=== PATIENT | male | born 1955 | race American Indian/Alaskan Native ===

== ENCOUNTER 2024-06-19 11:42 | Inpatient (IN) | payer OTHER, SELFPAY ==
[2024-06-19] VITALS (13 sets, daily range): BP systolic 108–132; BP diastolic 70–80; PULSE 72–84; RESP 18–93; TEMP 36.4–37; O2SAT 94–99; BMI 23.7; BMI 26.1; BMI 24.4
--- NOTE | 2024-06-19 11:51 | EDNOTE_ITS ---
ED General RME/HPI General Chief complaint: Abdominal Pain Stated complaint: ABD PAIN Time Seen by Provider: 06/19/24 11:50 Arrival date/time: 06/19/24 11:42 Abdominal pain HPI onset over the last week. The patient has a progressively more distended abdomen. The patient has a history of cirrhosis coming from assisted care facility states the pain is not manageable anymore. Patient denies any shortness of breath. EMS reports stable vital signs and route. Related Data Home Medications ?Medication ?Instructions ?Recorded ?Confirmed escitalopram oxalate 20 mg tablet 20 mg PO QDAY 06/19/24 furosemide 40 mg tablet (Lasix) 40 mg PO QAM 06/19/24 06/19/24 lactulose 10 gram/15 mL oral 20 g PO BID 06/19/2409/07 solution lorazepam 2 mg/mL oral concentrate 0.25 mg PO Q4H PRN anxiety 06/19/24 06/19/24 magnesium oxide 400 mg PO QDAY 06/19/2409/07 midodrine 10 mg tablet 10 mg PO BID 06/19/24 morphine 15 mg tablet,extended 15 mg PO Q12H 06/19/24 06/19/24 release morphine concentrate 20 mg/mL oral 20 mg PO .COMPLEX P RN pain (scale 06/19/24 06/19/24 syringe (FOR ORAL USE ONLY) score 7-10) rosuvastatin 5 mg tablet (Crestor) 5 mg PO QDAY 06/19/24 spironolactone 50 mg tablet 50 mg PO QDAY 06/19/2409/07 (Aldactone) Allergies Allergy/AdvReac Type Severity Reaction Status Date / Time No Known Allergies Allergy Verified 06/19/24 12:40 Review of Systems Review of Systems Narrative Review of Systems: GEN: No fever, no chills, no weight loss EYES: No discharge, no visual changes, no pain HEENT: No ear pain, no congestion, no sore throat PULM: No shortness of breath, no cough, no congestion CV: No chest pain, no dyspnea on exertion, no palpitations GI: No nausea, no vomiting, no diarrhea, + pain, no constipation : No frequency, no urgency, no dysuria MUSC/SKEL: No joint pain, no back pain SKIN: No rash PSYCH: No hallucinations, no depression HEME/LYMPH: No easy bleeding or bruising tendencies NEURO: No weakness, no headache ED Exam Narrative Physical exam: [General: Not in any acute distress Head normocephalic HEENT: Within acceptable limits Neck is supple nontender Chest equal chest rise nontender to palpation Respiratory: Clear to auscultation no wheezes crackles or rubs CV: Rate rhythm is regular no murmurs rubs or clicks Abdomen is distended, firm but not rigid, tympanic. Nontender Back: No CVA tenderness no spinous process tenderness from cervical spine thoracic and lumbar spine Skin: Intact no petechiae rash induration ulceration or crepitus Extremities: Moving all extremity against resistance cap refill less than 2 seconds neurosensory intact Neuro: Awake alert oriented x3 Glascow coma 15 no focal deficits] Course Quality Measures none Orders Category Date Time Status US abdomen Stat Exams 06/19/24 14:17 Completed Albumin, Peritoneal Fluid Routine Lab 06/19/24 15:15 Ordered Amylase,Peritoneal Fluid Routine Lab 06/19/24 15:15 Ordered Body Fld Cult w Julita & Gram St Routine Lab 06/19/24 15:15 Ordered CBC Stat Lab 06/19/24 12:05 Completed CMP [Comprehensive Metabolic Panel] Stat Lab 06/19/24 12:05 Completed Glucose,Peritoneal Fluid Routine Lab 06/19/24 15:15 Ordered LDH,Peritoneal Fluid Routine Lab 06/19/24 15:15 Ordered PT [Prothrombin Time with INR] Stat Lab 06/19/24 12:05 Completed PTT [Partial Thromboplastin Time] Stat Lab 06/19/24 12:05 Completed Peritoneal Cell Cnt/Diff Routine Lab 06/19/24 15:15 Ordered Protein Total,Peritoneal Fluid Routine Lab 06/19/24 15:15 Ordered oxyCODONE/APAP 5/325 [Percocet 5/325] Med 06/19/24 12:14 Discontinued 1 tab PO X1 ONE oxyCODONE/APAP 5/325 [Percocet 5/325] Med 06/19/24 13:47 Discontinued 1 tab PO X1 ONE Vital Signs Vital signs: Vital Signs Temperature 98.2 F 06/19/24 11:49 Pulse Rate 77 06/19/24 11:49 Respiratory Rate 19 06/19/24 11:49 Blood Pressure 113/73 06/19/24 11:49 Pulse Oximetry (%) 95 06/19/24 11:49 Oxygen Delivery Method Room Air 06/19/24 11:49 [facility] Patient data External records reviewed:: [facility] previous records and EMS form Clinical information provided by:: EMS Social determinants that could affect healthcare access:: none Patient has the following chronic illnesses:: Cirrhosis How is presenting disease/condition affected by chronic disease/condition?: e xacerbated by Evaluation data The following diagnostics were reviewed and interpreted by me:: lab results Lab and/or radiology exams considered but not ordered:: CBC shows no leukocytosis and H&H of 11.2 and 32.3 respectively with there is no old laboratory results for follow-through. Patient has a platelet count of 45,000. Coags show PT 15 INR 1.4 PTT of 29. CMP shows sodium 135 CO2 of 31.3 no other significant electrolyte imbalances renal impairment T. bili at 2.9 AST 105 ALT 60 alk phos is 230. Interpretation Summary: Patient is a DNR with a history of liver cancer, the patient has not had a paracentesis in decades.(According to patient), I am concerned that there is advancement of his liver cancer but not 100% sure. The patient is stable however at this time he has intractable abdominal pain. Patient's case discussed with Dr. Bari rojas, resident for Dr. Miller who agrees to accept the patient for admission. Patient is in agreement with this plan Medications Medications considered but not ordered:: None Medication administrations:: Medication Administration History Acetaminophen (Acetaminophen 325 Mg Tablet) 650 mg PO Q6H PRN PRN Reason: PAIN OR FEVER > 101 Stop: 07/19/24 15:32 Escitalopram Oxalate (Escitalopram Oxalate 10 Mg Tablet) 20 mg PO QDAY LIONEL Stop: 07/20/24 08:59 Furosemide (Furosemide 40 Mg Tablet) 40 mg PO QAM LIONEL Stop: 07/20/24 08:59 Ceftriaxone Sodium/Dextrose (Rocephin/D5w 1gm Iv Premix) 1 gm in 50 mls @ 100 mls/hr IV BID LIONEL Stop: 06/26/24 20:59 Last Admin: 06/19/24 21:28 Dose: 100 mls/hr Documented By: BRYAN Albumin Human (Albuminar-25 Ivpb) 12.5 gm in 50 mls @ 50 mls/hr IV X1 ONE Stop: 06/20/24 07:59 Lactulose (Lactulose Syrup 20 Gm/30 Ml Udc) 20 gm PO TID [facility]; Protocol Stop: 07/19/24 15:44 Last Admin: 06/19/24 21:28 Dose: 20 gm Documented By: Admin: 06/19/24 16:08 Dose: 20 gm Documented By: JOSEFINA Midodrine (Midodrine 5 Mg Tablet) 5 mg PO TID [facility] Stop: 07/19/24 21:59 Last Admin: 06/19/24 21:28 Dose: 5 mg Documented By: BRYAN Morphine Sulfate (Morphine Sulf 15 Mg Tabcr) 15 mg PO Q12HR [facility]; Protocol Stop: 06/24/24 20:59 Last Admin: 06/19/24 21:29 Dose: 15 mg Documented By: BRYAN Ondansetron HCl (Ondansetron Inj 2 Mg/Ml Inj 2 Ml) 4 mg IV Q6H PRN; Protocol PRN Reason: NAUSEA OR VOMITING Stop: 07/19/24 15:32 Pantoprazole Sodium (Pantoprazole Inj 40 Mg Vial) 40 mg IVP BID [facility] Stop: 07/19/24 20:59 Last Admin: 06/19/24 21:28 Dose: 40 mg Documented By: BRYAN Spironolactone (Spironolactone 25 Mg Tablet) 50 mg PO QDAY [facility] Stop: 07/20/24 08:59 Discontinued Medications Ceftriaxone Sodium/Dextrose (Rocephin/D5w 1gm Iv Premix) 50 mls @ 100 mls/hr IV QDAY [facility] Stop: 06/26/24 15:37 Oxycodone/Acetaminophen (Oxycodone/Apap 5/325 Tablet) 1 tab PO X1 ONE Stop: 06/19/24 12:15 Last Admin: 06/19/24 12:58 Dose: 1 tab Documented By: JOSEFINA Oxycodone/Acetaminophen (Oxycodone/Apap 5/325 Tablet) 1 tab PO X1 ONE Stop: 06/19/24 13:48 Last Admin: 06/19/24 15:29 Dose: 1 tab Documented By: JOSEFINA Pantoprazole Sodium (Pantoprazole Inj 40 Mg Vial) 40 mg IVP QDAY [facility] Stop: 07/19/24 15:44 Last Admin: 06/19/24 16:06 Dose: 40 mg Documented By: JOSEFINA Pantoprazole Sodium (Pantoprazole Inj 40 Mg Vial) 40 mg IVP X1 ONE Stop: 06/19/24 16:32 Last Admin: 06/19/24 16:36 Dose: Not Given Documented By: JOSEFINA Non-Admin Reason: Duplicate Medication on eMAR None Consultations Consultation(s) initiated? (list below): No Diagnosis Differential Diagnosis ED Complaint MDM: Intractable abdominal pain ascites liver dysfunction Most likely diagnosis given after review of the tests above:: Ascites abdominal pain Admission Indicated Admission indicated?: indicated Explain why admission is indicated or not indicated:: Requires thoracentesis in the a.m. with intractable abdominal pain Admission Request Was there a request for admission?: No Disposition Plan Disposition Plan: Admit Medical Decision Making Differential Diagnosis Differential Diagnosis: Intractable abdominal pain ascites liver dysfunction Lab Data 06/19/24 12:05 06/19/24 12:05 Labs: Lab Results 06/19/24 Range/Units 12:05 WBC 6.7 (3.8-10.6) Thou/mm3 RBC 3.34 L (4.50-5.90) Miln/mm3 Hgb 11.2 L (13.5-16.0) g/dL Hct 32.3 L (41.0-53.0) % MCV 97 (80-100) fL MCH 33.5 (25.0-35.0) pg MCHC 34.7 (31.0-37.0) g/dl RDW Std Deviation 48.5 H (35.1-43.9) fL Plt Count 45 L (140-440) Thou/mm3 Neut % (Auto) 83 H (37-80) % Lymph % (Auto) 6 L (10-50) % Rich % (Auto) 11 (0-12) % Eos % (Auto) 1 (0-10) % Baso % (Auto) 0 (0-2.5) % Neut # (Auto) 5.5 (1.8-7.7) Thou/mm3 Lymph # (Auto) 0.4 L (1.0-4.8) Thou/mm3 Rich # (Auto) 0.7 (0.0-0.8) Thou/mm3 Eos # (Auto) 0.0 (0.0-0.5) Thou/mm3 Baso # (Auto) 0.0 (0.0-0.2) Thou/mm3 Immature Gran # (Auto) 0.02 H (0.00-0.00) Thou/mm3 Absolute Nucleated RBC 0.00 (0.00-0.00) Thou/mm3 Immature Gran % 0 (0-0) % Nucleated RBC % 0 (0) /100 WBC PT 15.0 H (9.0-12.2) Seconds INR 1.4 H (0.9-1.3) APTT 29.0 (22.0-36.0) Seconds Sodium 135 L (136-145) mMol/L Potassium 4.6 (3.4-5.1) mMol/L Chloride 98 (98-107) mMol/L Carbon Dioxide 31.3 H (20.0-31.0) mMol/L Anion Gap 6 L (7-16) BUN 19 (9-23) mg/dL Creatinine 1.0 (0.6-1.3) mg/dL Estim Creat Clear Calc 79.9 (>60) mL/min eGFR > 60 (60 - ) See Note BUN/Creatinine Ratio 19 (12-20) Ratio Glucose 118 H (74-106) mg/dL Calculated Osmolality 273 L (275-295) Calcium 8.9 (8.3-10.6) mg/dL Corrected Calcium 9.6 (8.5-10.1) mg/dL Total Bilirubin 2.9 H (0.3-1.2) mg/dL AST 105 H (0-34) U/L ALT 60 H (10-49) U/L Alkaline Phosphatase 230 H (46-116) U/L Total Protein 6.5 (5.7-8.2) gm/dL Albumin 3.1 L (3.4-4.8) gm/dL Globulin 3.4 (2.3-3.5) gm/dL Albumin/Globulin Ratio 0.9 L (1.2-2.2) Tumor Marker AFP 23.20 H (<8.10) ng/mL Misc Test Result Platelets confirmed Discharge Plan Plan Patient Disposition: Other Care w/in Hosp ([facility]) Patient condition on transfer: Stable Problem List Clinical Impression: Intractable abdominal pain, Ascites
[2024-06-19 12:26] LABS: Basophils % (Auto) 0 % (0-2.5); Eosinophils % (Auto) 1 % (0-10); Hematocrit 32.3 % (41.0-53.0); Hemoglobin 11.2 g/dL (13.5-16.0); Immature Granulocytes % (Auto) 0 % (0-0); Immature Granulocytes Auto 0.02 Thou/mm3 (0.00-0.00); Lymphocytes # (Auto) 0.4 Thou/mm3 (1.0-4.8); Lymphocytes % (Auto) 6 % (10-50); Mean Corpuscular HGB Conc 34.7 g/dl (31.0-37.0); Mean Corpuscular Hemoglobin 33.5 pg (25.0-35.0); Mean Corpuscular Volume 97 fL (80-100); Monocytes # (Auto) 0.7 Thou/mm3 (0.0-0.8); Monocytes % (Auto) 11 % (0-12); Neutrophils # (Auto) 5.5 Thou/mm3 (1.8-7.7); Neutrophils % (Auto) 83 % (37-80); Nucleated Red Blood Cell % 0 /100 WBC (0); RDW Standard Deviation 48.5 fL (35.1-43.9); Red Blood Count 3.34 Miln/mm3 (4.50-5.90); White Blood Count 6.7 Thou/mm3 (3.8-10.6)
[2024-06-19 12:33] LABS: Platelet Count 45 Thou/mm3 (140-440)
--- NOTE | 2024-06-19 12:44 | PC.NURSE ---
pt brought in by ems due to abdominal pain
[2024-06-19 12:45] LABS: Alanine Aminotransferase 60 U/L (10-49); Albumin, Serum 3.1 gm/dL (3.4-4.8); Albumin/Globulin Ratio 0.9 (1.2-2.2); Alkaline Phosphatase 230 U/L (46-116); Anion Gap 6 (7-16); Aspartate Amino Transferase 105 U/L (0-34); BUN/Creatinine Ratio 19 Ratio (12-20); Bilirubin,Total 2.9 mg/dL (0.3-1.2); Blood Urea Nitrogen 19 mg/dL (9-23); Calcium 8.9 mg/dL (8.3-10.6); Calcium (Corrected) 9.6 mg/dL (8.5-10.1); Carbon Dioxide 31.3 mMol/L (20.0-31.0); Chloride 98 mMol/L (98-107); Estimated Creatinine Clearance 79.9 mL/min (>60); Globulin 3.4 gm/dL (2.3-3.5); Glucose 118 mg/dL (74-106); Osmolality,Calculated 273 (275-295); Potassium 4.6 mMol/L (3.4-5.1); Sodium 135 mMol/L (136-145); Total Protein 6.5 gm/dL (5.7-8.2); eGFR > 60 See Note
[2024-06-19 12:55] LABS: INR 1.4 (0.9-1.3)
[2024-06-19] MEDS: oxyCODONE/APAP 5/325 TABLET 1 TAB PO ×2 (12:58→15:29)
--- NOTE | 2024-06-19 13:35 | PC.NURSE ---
given 2 warm blankets and provider notified that pt still in pain
[2024-06-19 13:47] LABS: Slide Review Platelets confirmed
--- NOTE | 2024-06-19 14:17 | XR_ITS ---
Examination: Abdomen sonogram, complete Date and time of exam: June 19, 2024 1629 hours INDICATIONS: Severely distended abdomen noticed beginning one month ago. Technique: Multiple real-time grayscale transabdominal sonographic images of the abdomen have been obtained. Findings: 13 mm gallstone Gallbladder wall is thickened 0.5 cm, suspicious for edema however the patient has ascites Common bile duct 0.3 cm Pancreas obscured by bowel gas as well as aorta Liver 14.5 cm irregular contour fatty infiltration no focal liver lesions Normal hepatopedal portal venous flow Patent IVC Right kidney 10.7 cm cortex 1.5 cm Left kidney 11.1 cm renal cortex 1.8 cm Mild renal parenchymal scar formation, no hydronephrosis Marked splenomegaly 18.4 cm Moderate ascites throughout the abdomen IMPRESSION: Cirrhosis Prominent splenomegaly Moderate ascites Cholelithiasis, the gallbladder wall is thickened however the patient's ascites may contribute to this thickening of the gallbladder wall, HIDA scan follow-up would best assess for cystic duct obstruction
--- NOTE | 2024-06-19 15:52 | PC.NURSE ---
alfa from [facility] called to request update on pt.
[2024-06-19] MEDS: PANTOPRAZOLE INJ 40 MG VIAL IVP ×2 (16:06→21:28)
[2024-06-19] MEDS: LACTULOSE SYRUP 20 GM/30 ML UDC PO ×2 (16:08→21:28)
--- NOTE | 2024-06-19 16:28 | PC.NURSE ---
ultrasound in progress
--- NOTE | 2024-06-19 16:34 | PD.RESHP ---
Documentation for date of: 06/19/24 HPI History of Present Illness History of present illness: Patient is a 68-year-old male, , with past medical history of HCV, treated with Harvoni, end-stage cirrhosis, is on hospice, comes from [facility], complaining of abdominal distention and pain. Patient has been having abdominal distention for the past few months, but stated has been having excessive pain and tenderness for the past 1 week. Denied having fever, and syncope or diarrhea but does complain of painful defecation, bowel movement today contained bright red blood. Patient was last seen at the cancer treatment center for evaluation of liver masses, no follow-up recorded. Patient is from [facility]. Reported last paracentesis was many years ago. Currently on symptomatic treatment for ascites as well as pain relief with morphine lorazepam for agitation. Past medical history: End-stage cirrhosis, HCV treated with Harvoni, history of alcoholism. No pertinent surgical history Social history: Reported history of excessive drinking, but quit many months ago, history of smoking, but currently gets to smoke 3 cigarettes a day at the hospice center. CODE STATUS: Patient insists he wants to be full code, including chest compressions and intubation. He understands this will rescind the hospice and, hospice referral will have to be reinitiated. Review of Systems Review of Systems Narrative Review of Systems: General: Denies fevers or chills HEENT: Denies congestion or sore throat Heart: Denies chest pain or palpitations Lungs: Denies shortness of breath or cough Abdomen: Bright red bleeding per rectum, painful defecation, abdominal distention and tenderness. Genitourinary: Endorses dysuria Musculoskeletal: Denies joint pain, denies muscular pain Neurology: Denies any numbness, tingling Review of systems otherwise negative except what is mentioned above. Past Medical History Past Medical History CARDIAC: Positive Hypertension; Negative Hypercholesterolemia or Congestive Heart Failure RESPIRATORY: Negative Chronic Obstructive Pulmonary Disease (COPD) GENITOURINARY: Negative Renal Disease ENDOCRINE: Positive Diabetes Mellitus Type 2; Negative Diabetes Mellitus Type 1 Social History SMOKING STATUS: Current every day smoker Exam Vital Signs Temp Pulse Resp BP Pulse Ox O2 Del Method 98 F 75 19 117/72 94 L Room Air 06/19/24 16:19 06/19/24 16:19 06/19/24 16:19 06/19/24 16:19 06/19/24 16:19 06/19/24 16:19 Narrative Exam General: AOx3, cooperative, but frail, cachectic built. Skin: Intact, no cyanosis or edema noted. Multiple spider angiomatosis noted HEENT: Atraumatic/normocephalic, ALICIA, neck supple Heart: RRR, S1 and S2 without clicks or murmurs Lungs: Clear on auscultation bilaterally, no difficulty breathing Abdomen: Distended and tense, tender to even light palpation, protuberant abdomen. Vascular: Peripheral pulses palpable Neuro: No focal neurological deficits noted. Results: Labs 06/19/24 12:05 06/19/24 12:05 Labs: Short CBC 06/19/24 Range/Units 12:05 WBC 6.7 (3.8-10.6) Thou/mm3 Hgb 11.2 L (13.5-16.0) g/dL Hct 32.3 L (41.0-53.0) % Plt Count 45 L (140-440) Thou/mm3 BMP 06/19/24 12:05 Sodium 135 L Potassium 4.6 Chloride 98 Carbon Dioxide 31.3 H BUN 19 Creatinine 1.0 Glucose 118 H Calcium 8.9 Liver Function 06/19/24 Range/Units 12:05 Total Bilirubin 2.9 H (0.3-1.2) mg/dL AST 105 H (0-34) U/L ALT 60 H (10-49) U/L Alkaline Phosphatase 230 H (46-116) U/L Albumin 3.1 L (3.4-4.8) gm/dL Quality Measures Quality Measures none Advance care planning discussed with:: patient Medications Home Medications and Allergies Home Medications ?Medication ?Instructions ?Recorded ?Confirmed ?Type escitalopram oxalate 20 mg tablet 20 mg PO QDAY 06/19/24 06/19/24 History furosemide 40 mg tablet (Lasix) 40 mg PO QAM 06/19/24 06/19/24 History lactulose 10 gram/15 mL oral 20 g PO BID 06/19/24 06/19/24 History solution lorazepam 2 mg/mL oral concentrate 0.25 mg PO Q4H PRN anxiety 06/19/24 06/19/24 History magnesium oxide 400 mg PO QDAY 06/19/24 06/19/24 History midodrine 10 mg tablet 10 mg PO BID 06/19/24 06/19/24 History morphine 15 mg tablet,extended 15 mg PO Q12H 06/19/24 06/19/24 History release morphine concentrate 20 mg/mL oral 20 mg PO .COMPLEX PRN pain (scale 06/19/24 06/19/24 History syringe (FOR ORAL USE ONLY) score 7-10) rosuvastatin 5 mg tablet (Crestor) 5 mg PO QDAY 06/19/24 06/19/24 History spironolactone 50 mg tablet 50 mg PO QDAY 06/19/24 06/19/24 History (Aldactone) Allergies Allergy/AdvReac Type Severity Reaction Status Date / Time No Known Allergies Allergy Verified 06/19/24 12:40 Visit Medications Acetaminophen (Acetaminophen 325 Mg Tablet) 650 mg PO Q6H PRN PRN Reason: PAIN OR FEVER > 101 Stop: 07/19/24 15:32 Escitalopram Oxalate (Escitalopram Oxalate 10 Mg Tablet) 20 mg PO QDAY LIONEL Stop: 07/20/24 08:59 Furosemide (Furosemide 40 Mg Tablet) 40 mg PO QAM LIONEL Stop: 07/20/24 08:59 Ceftriaxone Sodium/Dextrose (Rocephin/D5w 1gm Iv Premix) 1 gm in 50 mls @ 100 mls/hr IV BID LIONEL Stop: 06/26/24 20:59 Albumin Human (Albuminar-25 Ivpb) 12.5 gm in 50 mls @ 50 mls/hr IV X1 ONE Stop: 06/20/24 07:59 Lactulose (Lactulose Syrup 20 Gm/30 Ml Udc) 20 gm PO TID LIONEL; Protocol Stop: 07/19/24 15:44 Last Admin: 06/19/24 16:08 Dose: 20 gm Midodrine (Midodrine 5 Mg Tablet) 5 mg PO TID ON LICENSE OF [facility] Stop: 07/19/24 21:59 Morphine Sulfate (Morphine Sulf 15 Mg Tabcr) 15 mg PO Q12HR LIONEL; Protocol Stop: 06/24/24 20:59 Ondansetron HCl (Ondansetron Inj 2 Mg/Ml Inj 2 Ml) 4 mg IV Q6H PRN; Protocol PRN Reason: NAUSEA OR VOMITING Stop: 07/19/24 15:32 Pantoprazole Sodium (Pantoprazole Inj 40 Mg Vial) 40 mg IVP BID LIONEL Stop: 07/19/24 20:59 Pantoprazole Sodium (Pantoprazole Inj 40 Mg Vial) 40 mg IVP X1 ONE Stop: 06/19/24 16:32 Spironolactone (Spironolactone 25 Mg Tablet) 50 mg PO QDAY ON LICENSE OF [facility] Stop: 07/20/24 08:59 Discontinued Medications Ceftriaxone Sodium/Dextrose (Rocephin/D5w 1gm Iv Premix) 50 mls @ 100 mls/hr IV QDAY ON LICENSE OF [facility] Stop: 06/26/24 15:37 Oxycodone/Acetaminophen (Oxycodone/Apap 5/325 Tablet) 1 tab PO X1 ONE Stop: 06/19/24 12:15 Last Admin: 06/19/24 12:58 Dose: 1 tab Oxycodone/Acetaminophen (Oxycodone/Apap 5/325 Tablet) 1 tab PO X1 ONE Stop: 06/19/24 13:48 Last Admin: 06/19/24 15:29 Dose: 1 tab Pantoprazole Sodium (Pantoprazole Inj 40 Mg Vial) 40 mg IVP QDAY ON LICENSE OF [facility] Stop: 07/19/24 15:44 Last Admin: 06/19/24 16:06 Dose: 40 mg Assessment & Plan Plan Patient is a 68-year-old male, past medical history of HCV, end-stage liver disease, possible liver mass, presents with protuberant abdomen, tenderness, plan for paracentesis, patient was on hospice, but wants to be full code for this hospitalization. Also complaining of bright red bleeding per rectum and painful defecation. #End-stage liver disease #Ascites #Rule out SBP #Transaminitis Ordered ultrasound abdominal stat, it will possibly be a limited study due to massive ascites, paracentesis for symptom relief as well as diagnostic studies, to rule out SBP, his abdomen is markedly tender even on light touch. Patient denied having a fever, but due to clinical presentation we will treat as SBP until diagnostic studies from paracentesis prove otherwise. Hyperbilirubinemia and transaminitis as well as coagulopathy consistent with end-stage cirrhosis. ? IV ceftriaxone 1 g twice daily ? IV Protonix 40 mg twice daily ? Lactulose 20 mg 3 times daily #Anemia #Bright red bleeding per rectum Complaining of bright red bleeding per rectum and patient has anemia on labs. Possibly hemorrhoids, given patient's overall prognosis and clinical condition, will hold off on getting a GI consult and aggressive intervention, will continue with Protonix IV twice daily at this point, will reassess patient after paracentesis, and goals of care tomorrow. ? IV Protonix 40 mg twice daily ? Daily CBC, trend hemoglobin, transfuse if hemoglobin less than 7. #Possible HCC Patient was seen in the cancer treatment center last year for evaluation of liver masses, possible HCC, blood in follow-up, patient follows at the [facility] system. Has been on hospice since past year, currently came to the ER due to unbearable abdominal pain. ? Ordered AFP ? Consider CT abdomen pelvis with contrast if ultrasound abdomen inconclusive. Plan of care discussed with my attending Dr. Angela Yu PGY2 Attending Provider Attestation/Addendum I have discussed and was present for the essential components of the history, physical examination, diagnosis, and treatment plan with the resident. I agree with the patient's care as documented by the resident and amended herein by me. Kristopher Miller, DO. Although this document has been carefully reviewed, there may still be some phonetic and other typographical errors. These errors are purely grammatical due to imperfections in the software program and should not be construed in any way to compromise the substance of the patient's medical care during this visit.
--- NOTE | 2024-06-19 16:37 | PC.NURSE ---
report given to evan for pt admin
[2024-06-19] MEDS: MIDODRINE 5 MG TABLET PO (21:28)
[2024-06-19] MEDS: cefTRIAXone/D5w 1gm IV premix 1 GM/50 ML BAG IV (21:28)
[2024-06-19] MEDS: Morphine Sulf 15 MG TABCR PO (21:29)
[2024-06-20] VITALS (8 sets, daily range): BP systolic 113–117; BP diastolic 69–76; PULSE 65–92; RESP 16–97; TEMP 36.2–36.7; O2SAT 91–95; BMI 24.5
[2024-06-20 05:05] LABS: Basophils % (Auto) 0 % (0-2.5); Eosinophils # (Auto) 0.1 Thou/mm3 (0.0-0.5); Eosinophils % (Auto) 1 % (0-10); Hematocrit 30.7 % (41.0-53.0); Hemoglobin 10.5 g/dL (13.5-16.0); Immature Granulocytes % (Auto) 0 % (0-0); Immature Granulocytes Auto 0.01 Thou/mm3 (0.00-0.00); Lymphocytes # (Auto) 0.4 Thou/mm3 (1.0-4.8); Lymphocytes % (Auto) 9 % (10-50); Mean Corpuscular HGB Conc 34.2 g/dl (31.0-37.0); Mean Corpuscular Hemoglobin 33.5 pg (25.0-35.0); Mean Corpuscular Volume 98 fL (80-100); Monocytes # (Auto) 0.5 Thou/mm3 (0.0-0.8); Monocytes % (Auto) 11 % (0-12); Neutrophils # (Auto) 3.9 Thou/mm3 (1.8-7.7); Neutrophils % (Auto) 79 % (37-80); Nucleated Red Blood Cell % 0 /100 WBC (0); RDW Standard Deviation 48.7 fL (35.1-43.9); Red Blood Count 3.13 Miln/mm3 (4.50-5.90); White Blood Count 4.9 Thou/mm3 (3.8-10.6)
[2024-06-20 05:19] LABS: Platelet Count 34 Thou/mm3 (140-440)
[2024-06-20 05:23] LABS: INR 1.5 (0.9-1.3); Prothrombin Time 15.6 Seconds (9.0-12.2)
[2024-06-20 05:39] LABS: Slide Review Platelets confirmed
[2024-06-20 05:43] LABS: Alanine Aminotransferase 51 U/L (10-49); Albumin, Serum 2.8 gm/dL (3.4-4.8); Alkaline Phosphatase 197 U/L (46-116); Anion Gap 4 (7-16); Aspartate Amino Transferase 88 U/L (0-34); BUN/Creatinine Ratio 19 Ratio (12-20); Bilirubin,Direct 1.6 mg/dL (0.0-0.3); Bilirubin,Total 2.8 mg/dL (0.3-1.2); Blood Urea Nitrogen 19 mg/dL (9-23); Calcium 8.7 mg/dL (8.3-10.6); Carbon Dioxide 30.2 mMol/L (20.0-31.0); Cardiac Risk Estimate 2.9 RATIO (4.0-6.7); Chloride 100 mMol/L (98-107); Cholesterol 72 mg/dL (132-200); Estimated Creatinine Clearance 79.9 mL/min (>60); Glucose 83 mg/dL (74-106); HDL Cholesterol 25 mg/dL (40-60); LDL Cholesterol,Calculated 37 mg/dL (0-130); Osmolality,Calculated 269 (275-295); Phosphorous 3.1 mg/dL (2.4-5.1); Potassium 4.2 mMol/L (3.4-5.1); Sodium 134 mMol/L (136-145); Thyroid Stimulating Hormone 5.46 uIU/mL (0.55-4.78); Total Protein 5.9 gm/dL (5.7-8.2); Triglycerides 51 mg/dL (30-150); eGFR > 60 See Note
[2024-06-20] MEDS: cefTRIAXone/D5w 1gm IV premix 1 GM/50 ML BAG IV (08:40)
[2024-06-20] MEDS: PANTOPRAZOLE INJ 40 MG VIAL IVP (08:40)
[2024-06-20] MEDS: ALBUMIN HUMAN 25% IVPB 12.5 GM/50 ML BTL IV (09:22)
--- NOTE | 2024-06-20 09:34 | PC.SS ---
Rounding: Pending Paracentesis
[2024-06-20 09:52] LABS: Free T4 (Free Thyroxine) 1.03 ng/dL (0.89-1.76)
--- NOTE | 2024-06-20 09:55 | PC.SS ---
Addendum entered by Cesilia Quarles 06/20/24 10:14: DC plan will be for the pt to return to [facility] with [facility]. Original Note: SS attempted to meet with pt at bedside to complete initial assessment. Pt was unable to identify where he lives and which hospice agency he is aligned with. SS inquired on his medical decision maker, he stated Mary from Hospice. SS inquired on her number but pt unable to provide. SS inquired if his son is his DM as he is listed on his facesheet, he stated no. Per H&P pt is from [facility], SS is unaware of this facility. SS reached out to [facility], he is not their pt. SS reached out to [facility] and spoke to Kimberly who stated that is their pt and he is from [facility]. [phone] spoke to Nurse Interiano, pt is from their facility and was aligned with [facility]. Parvez Interiano pt is pretty independent with his ADLs and utilizes a walker. SS inquired on his DM and she stated pt is his own RP.
--- NOTE | 2024-06-20 10:10 | CHAP ---
Patient was visited by the Spiritual Care Volunteer who prayed for them. (Volunteer was in the hospital from 09:00-10:10).
--- NOTE | 2024-06-20 10:27 | PC.NURSE ---
Per IR pt will not have procedure today d/t platelet level. For now planned for tomorrow.
--- NOTE | 2024-06-20 10:29 | PC.SS ---
Richie Edge is a 68-year-old male admitted to [facility] for Abd Pain. SS conducted bedside contact with the patient to complete initial assessment and to discuss discharge planning.? Patient was unable to confirm demographics. Therefore SS reached out to Nurse at [facility] at the [place] and spoke to Laisha who reports being independent with ADLs, and utilizes a walker. Pt aligned with [facility]. Laisha reports pt being his own DM and they have his son listed as secondary Gerry Sotomayor [phone]. Plan is for pt to return to [facility] are aligned with [facility] [place] [facility] for transport. No further intervention required at this time, rn social services would be available to address any further concerns. DC Plan: [facility] [phone] Contact: Son, Gerry Sotomayor [phone] PCP: Lit
--- NOTE | 2024-06-20 12:45 | PC.NURSE ---
Pt refusing care made MD barajas aware. Per Md will cont with hospice care.
--- NOTE | 2024-06-20 13:54 | ESDS_ITS ---
<Statement entered by Elissa Restrepo MD - 06/20/24 14:55> I personally saw and examined the patient and discussed the assessment and plan with the entire medicine team, including my attending Dr. Miller, Elissa Restrepo M.D. PGY-2 Disclaimer: Despite multiple revisions, due to the dictation software being used, the document bellow may not be free of grammatical errors including phonetic/typographic errors. However, this does not deter from our commitment to providing health care in the patient's best interest in mind. Planned Discharge Date 06/20/24 DS: Providers Provider Date of admission: 06/19/24 15:33 Primary care physician: Physician No Primary/Family Admitting Provider: John Yu MD Attending Provider on Admission: Adebayo Miller DO Consults: 06/19/24 17:41 Referral Registered Dietitian Routine Comment: Referral Speech Therapy Routine Comment: Health Equity Referral - Knowledge Deficit Routine Comment: Positive screening for knowledge deficit needs. Attending Provider on DC: Elvia Kemp MD Discharging Provider: Elvia Kemp MD DS: Diagnosis Problem List Completed Was Problem List Reviewed/Reconciled?: Yes Hospital Course Hospital Course Hospital course: Summary: Patient is a 68-year-old male, past medical history of HCV, end-stage liver disease, possible liver mass, presents with protuberant abdomen, tenderness, plan for paracentesis, patient was on hospice, but wants to be full code for this hospitalization. Additionally, complaining of blood per rectum. Given past medical history of end stage liver w/ decompensated ascites likely contributing to abdominal distention. Patient refused platel transfusion given thrombocytopenia and did not want to wait an additional day to have a paracenteisis done. Abdominal U/S showing cirrohosis, prominent splenomegaly, moderate ascites, and cholelithiasis. No Leukocytosis but patinet was started in patient w/ ceftriaxone 1 gram qday for prophylaxsis SBP. All home medicaiton continued in hospital. Patient denied any further intervention and will return to hospice w/ all home medication. Patient declined paracentesis. Instructions: -Patient is refusing paracentesis, insisting on going back to facility with Hospice. -Resume home medications per hospice . -In case of worsening symptoms , please return to the emergency room . #End-stage liver disease #Ascites #Rule out SBP #Transaminitis #Anemia #Bright red bleeding per rectum #Possible HCC - The patient's plan was discussed with attending Dr. Miller and senior residents Dr. Lauro Kemp MD PGY1 Internal Medicine Time Spent with Patient Time attestation: Total time spent providing and/or coordinating discharge services: at least 30 minutes of care and coordination Time spent: Greater than 30 minutes Exam Vital Signs Temp Pulse Resp BP Pulse Ox O2 Del Method O2 Flow Rate 98.1 F 81 18 113/69 92 L Room Air 1 06/20/24 12:00 06/20/24 12:00 06/20/24 12:06/20/24 12:06/20/24 12:06/20/24 12:06/20/24 01:07 Narrative Exam General Appearance: Alert & Oriented X3, well-nourished male who is lying in bed in mild discomfort secondary to abdominal distention HEENT: Skull symmetrical and atraumatic. Conjunctivae pin and moist. Pupils equal, round, reactive to light and accommodation (PERRL). External ear without lesion or discharge. Straight, nares patient, mucosa pink, no discharge. No thyroid nodule appreciated. No cervical lymphadenopathy. Cardio: Normal Rate and Rhythm with S1 and S2 heart sounds. No murmurs or extra heart sounds auscultated. No bruits on carotid auscultation. No peripheral edema or cyanosis. Lungs: Symmetric with good expansion. Chest and back non-tender. Breath sounds vesicular without crackles, wheezing or rhonchi Abdomen: mild diffuse tender, distended, Normal Reactive Bowel Sounds Neuro: Alert, cooperative, oriented to person, place, and time. Speech clear. CN grossly intact. Upper motor strength 5/5 and Lower motor strength 5/5. Sensation intact. Discharge Plan Plan Patient Disposition: Xfer Skilled Nsg Fac (SNF) Patient condition on transfer: Stable Care Plan Goals: Instructions: -Patient is refusing paracentesis, insisting on going back to facility with Hospice. -Resume home medications per hospice . -In case of worsening symptoms , please return to the emergency room . Prescriptions/Referrals Prescriptions/Med Rec: Continued lactulose 10 gram/15 mL solution 20 g PO BID lorazepam 2 mg/mL concentrate 0.25 mg PO Q4H PRN (Reason: anxiety) midodrine 10 mg tablet 10 mg PO BID Patient Comments: hold sbp >130 Rx Instructions: do not give last dose of day after 6PM or within 4 hrs of bedtime furosemide [Lasix] 40 mg tablet 40 mg PO QAM magnesium oxide 400 mg magnesium capsule 400 mg PO QDAY spironolactone [Aldactone] 50 mg tablet 50 mg PO QDAY rosuvastatin [Crestor] 5 mg tablet 5 mg PO QDAY escitalopram oxalate 20 mg tablet 20 mg PO QDAY morphine concentrate 20 mg/mL syringe 20 mg PO .COMPLEX PRN (Reason: pain (scale score 7-10)) Rx Instructions: 20 mg orally every 2 hours prn pain PRN; morphine 15 mg tablet extended release 15 mg PO Q12H Referrals: No Primary/Family,Physician [Primary Care Provider] - Patient/Caregiver Discharge Instructions Education Materials: Abdominal Pain, Taking Opioid Medicines Print Language: Kuwaiti Stand Alone Forms: Anne Marie Award Info., Patient Portal Info Letter Discharge Order Discharge Orders: Discharge (Routine); Ordered 06/20/24 Ordered By: John Yu Quality Discharge Quality Measures VTE prophylaxis Attestestation Attestation I have discussed and was present for the essential components of the discharge history, physical examination, diagnosis, and discharge treatment plan with the resident. I agree with the patient's discharge care as documented by the resident and amended herein by me. Kristopher Miller DO. The patient came to the hospital for abdominal pain and distention, the patient does have ascites fluid and we determined that a paracentesis would likely benefit the patient however due to his thrombocytopenia likely secondary to his end-stage liver disease, the procedure was not safe to perform per interventional radiology and our prism inspector. I did offer to transfuse the patient with platelets however he declined stating that if he could not be done today he wanted to go back to hospice care. Of note however, the patient did state he wanted to be full code, wanted full treatment and full workup in the emergency department when he arrived however wanted to stay in hospice care because he had nowhere else to go. The patient may return soon as I do believe a paracentesis would help him as stated above however we need to do it safely. Although this document has been carefully reviewed, there may still be some phonetic and other typographical errors. These errors are purely grammatical due to imperfections in the software program and should not be construed in any way to compromise the substance of the patient's medical care during this visit.
--- NOTE | 2024-06-20 17:30 | PC.NURSE ---
Report given to Laisha receiving ACCOUNT MANAGER EDUCATION at [facility] at [facility].
--- NOTE | 2024-06-20 19:32 | PC.NURSE ---
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 All belongings taken.
== END 2024-06-20 19:32 | disposition skilled nursing facility (03) | DRG 378 ==
LOC: SERX 14:36 → SERHOLD 16:25 → S3SX 17:06
PROVIDERS: Registered Nurse General Practice; Admitting Provider Student in an Organized Health Care Education/Training Program; Emergency Provider Family Medicine; Visit Provider Student in an Organized Health Care Education/Training Program
DX: K92.1 Melena (principal); D68.9 Coagulation defect, unspecified; R18.8 Other ascites; K74.60 Unspecified cirrhosis of liver; F17.210 Nicotine dependence, cigarettes, uncomplicated; K72.10 Chronic hepatic failure without coma; R16.0 Hepatomegaly, not elsewhere classified; D69.6 Thrombocytopenia, unspecified
CPT/HCPCS: 36415; 76700; 80048; 80053; 80061; 80076; 81001; 82042; 82105; 82150; 82945; 83615; 83735; 84100; 84157; 84439; 84443; 85025; 85610; 85730; 86850; 86900; 86901; 86965; 87081; 89051; 93225; J0696; J2470; P9047; A9270

== ENCOUNTER 2024-06-25 16:17 | Emergency (ER) | payer OTHER, SELFPAY ==
[2024-06-25 16:22] VITALS: BP 111/75; PULSE 88; RESP 16; TEMP 36.8; O2SAT 94
[2024-06-25 16:24] VITALS: BMI 23.7
[2024-06-25 16:43] VITALS: PULSE 96
--- NOTE | 2024-06-25 16:43 | EKG_ITS ---
[facility] Test Date: 2024-06-25 Pat Name: BRIANA FLORES Department: Room: - Gender: Male Cancer Program Coordinator: : 1955 Requested By: Jeanette Marino Order Number: [id number] Reading MD: Jeanette Marino Measurements Intervals [place] Rate: 83 P: 82 NM: 158 QRS: 13 QRSD: 93 T: 71 QT: 365 QTc: 431 Interpretive Statements SINUS RHYTHM LOW QRS VOLTAGE IN PRECORDIAL LEADS [QRS DEFLECTION < 1.0 mV IN CHEST LEADS] SEPTAL MYOCARDIAL INFARCTION , PROBABLY OLD [40+ ms Q WAVE IN V1/V2] No previous ECG available for comparison /store/S0/[id number]/ecg/[id number].pdf
[2024-06-25 16:44] VITALS: PULSE 82; RESP 16; O2SAT 96
[2024-06-25 17:15] LABS: Basophils % (Auto) 0 % (0-2.5); Eosinophils # (Auto) 0.1 Thou/mm3 (0.0-0.5); Eosinophils % (Auto) 1 % (0-10); Hemoglobin 11.2 g/dL (13.5-16.0); Immature Granulocytes % (Auto) 0 % (0-0); Lymphocytes % (Auto) 6 % (10-50); Monocytes # (Auto) 0.9 Thou/mm3 (0.0-0.8); Monocytes % (Auto) 12 % (0-12); Neutrophils % (Auto) 81 % (37-80); Nucleated Red Blood Cell % 0 /100 WBC (0)
[2024-06-25 17:16] LABS: Hematocrit 32.7 % (41.0-53.0); Immature Granulocytes Auto 0.03 Thou/mm3 (0.00-0.00); Lymphocytes # (Auto) 0.4 Thou/mm3 (1.0-4.8); Mean Corpuscular HGB Conc 34.3 g/dl (31.0-37.0); Mean Corpuscular Hemoglobin 32.7 pg (25.0-35.0); Mean Corpuscular Volume 96 fL (80-100); Neutrophils # (Auto) 6.1 Thou/mm3 (1.8-7.7); Platelet Count 52 Thou/mm3 (140-440); RDW Standard Deviation 49.1 fL (35.1-43.9); Red Blood Count 3.42 Miln/mm3 (4.50-5.90); White Blood Count 7.5 Thou/mm3 (3.8-10.6)
[2024-06-25 17:31] LABS: INR 1.4 (0.9-1.3); Partial Thromboplastin Time 30.5 Seconds (22.0-36.0); Prothrombin Time 15.1 Seconds (9.0-12.2)
[2024-06-25 17:32] LABS: B-Type Natriuretic Peptide < 20 pg/mL (0-100)
[2024-06-25 17:35] LABS: Alanine Aminotransferase 75 U/L (10-49); Albumin, Serum 3.1 gm/dL (3.4-4.8); Albumin/Globulin Ratio 0.9 (1.2-2.2); Alkaline Phosphatase 247 U/L (46-116); Anion Gap 5 (7-16); Aspartate Amino Transferase 122 U/L (0-34); BUN/Creatinine Ratio 22 Ratio (12-20); Bilirubin,Total 3.4 mg/dL (0.3-1.2); Blood Urea Nitrogen 24 mg/dL (9-23); Calcium (Corrected) 9.7 mg/dL (8.5-10.1); Carbon Dioxide 30.6 mMol/L (20.0-31.0); Chloride 97 mMol/L (98-107); Creatinine (Component) 1.1 mg/dL (0.6-1.3); Estimated Creatinine Clearance 72.6 mL/min (>60); Globulin 3.4 gm/dL (2.3-3.5); Glucose 136 mg/dL (74-106); Lipase 21 U/L (12-53); Magnesium 2.2 mg/dL (1.6-2.6); Osmolality,Calculated 272 (275-295); Potassium 4.6 mMol/L (3.4-5.1); Sodium 133 mMol/L (136-145); Total Protein 6.5 gm/dL (5.7-8.2); Troponin I 0.023 ng/mL (0.0-0.045); eGFR > 60 See Note
[2024-06-25 17:38] LABS: Path Review Blood Smear Sent to Pathologist; Slide Review Platelets confirmed
--- NOTE | 2024-06-25 17:59 | EDNOTE_ITS ---
ED Abdominal Pain RME/HPI General Chief Complaint: Abdominal Pain Stated complaint: ABDOMINAL DISTENSION Time seen by provider: 06/25/24 16:47 Arrival date/time: 06/25/24 16:17 RME / HPI RME / HPI narrative: 68 year old male with history of hepatitis C, treated with Harvoni, liver cirrhosis presents to the ED [facility] from [facility] at [facility] [place] for complaint of abdominal pain and distention today. Accompanied by constipation although re ports he is currently on Lactulose. No other associated symptoms reported. Denies fevers, chills, chest pain, cough, shortness of breath, nausea, vomiting, or urinary symptoms. Patient reportedly had a paracentesis performed for the first time last week and feels he may need another. Related Data Home Medications ?Medication ?Instructions ?Recorded ?Confirmed escitalopram oxalate 20 mg tablet 20 mg PO QDAY 06/19/24 furosemide 40 mg tablet (Lasix) 40 mg PO QAM 06/19/24 06/19/24 lactulose 10 gram/15 mL oral 20 g PO BID 06/19/2409/07 solution lorazepam 2 mg/mL oral concentrate 0.25 mg PO Q4H PRN anxiety 06/19/24 06/19/24 magnesium oxide 400 mg PO QDAY 06/19/2409/07 midodrine 10 mg tablet 10 mg PO BID 06/19/24 morphine 15 mg tablet,extended 15 mg PO Q12H 06/19/24 06/19/24 release morphine concentrate 20 mg/mL oral 20 mg PO .COMPLEX P RN pain (scale 06/19/24 06/19/24 syringe (FOR ORAL USE ONLY) score 7-10) rosuvastatin 5 mg tablet (Crestor) 5 mg PO QDAY 06/19/24 spironolactone 50 mg tablet 50 mg PO QDAY 06/19/2409/07 (Aldactone) Allergies Allergy/AdvReac Type Severity Reaction Status Date / Time No Known Allergies Allergy Verified 06/25/24 16:44 Review of Systems Review of Systems Narrative Review of Systems: GEN: No fever, no chills EYES: No discharge, no visual changes, no pain HEENT: No ear pain, no congestion, no sore throat PULM: No shortness of breath, no cough, no congestion CV: No chest pain, no palpitations GI: No nausea, no vomiting, no diarrhea, +pain, +distention, no constipation : No frequency, no urgency, no dysuria MUSC/SKEL: No joint pain, no back pain SKIN: No rash NEURO: No weakness, no headache Past Medical History Past Medical History CARDIAC: Positive Hypertension GASTROINTESTINAL: Positive Cirrhosis MUSCULOSKELETAL: Positive Arthritis ENDOCRINE: Positive Diabetes Mellitus Type 1 PSYCHO/SOCIAL: Positive Recreational Drug Use OTHER HISTORY: Positive Falls, Chicken Pox and Cancer Social History SMOKING STATUS: Never smoker ED Exam Narrative Physical exam: GENERAL APPEARANCE: alert and oriented x 4, well-developed, well-nourished, no acute distress; jaundice HEENT: Normocephalic, atraumatic; pupils equal, round, reactive to light; scleral icterus; EOMI; mucous membranes pink, moist; oropharynx clear NECK: Supple LUNGS: CTABL; no wheezes, no rales, no rhonchi HEART: Regular rate, regular rhythm; normal S1, S2; no murmurs ABDOMEN: distended, moderately firm, mild diffuse tenderness, ecchymosis to the abdominal wall; normal BS; no guarding, no rebound; no masses, no organomegaly, no hernia BACK: no CVA tenderness EXTREMITIES: atraumatic; no edema NEUROLOGIC: awake; alert and oriented x4; cranial nerves II-XII grossly intact; no focal sensory or motor deficits PSYCHIATRIC: appropriate mood and affect SKIN: warm, dry, jaundice; no rashes Course Quality Measures none Orders Category Date Time Status Manager Ed NOW Care 06/25/24 16:43 Active EKG (ED ONLY) *Do not use* NOW Care 06/25/24 16:43 Completed EKG (ED Only) Stat Exams 06/25/24 16:43 Draft US paracentesis abd w/image Stat Exams 06/25/24 17:17 Ordered Albumin, Peritoneal Fluid Routine Lab 06/25/24 17:18 Ordered Amylase,Peritoneal Fluid Routine Lab 06/25/24 17:18 Ordered B-Type Natriuretic Peptide Stat Lab 06/25/24 17:07 Completed Body Fld Cult w Julita & Gram St Routine Lab 06/25/24 17:18 Ordered CBC Stat Lab 06/25/24 17:07 Completed Comprehensive Metabolic Panel Stat Lab 06/25/24 17:07 Completed Glucose,Peritoneal Fluid Routine Lab 06/25/24 17:18 Ordered LDH,Peritoneal Fluid Routine Lab 06/25/24 17:18 Ordered Lipase Stat Lab 06/25/24 17:07 Completed Magnesium Stat Lab 06/25/24 17:07 Completed Partial Thromboplastin Time Stat Lab 06/25/24 17:07 Completed Path Review Blood Smear Stat Lab 06/25/24 17:07 Completed Peritoneal Cell Cnt/Diff Routine Lab 06/25/24 17:18 Ordered Protein Total,Peritoneal Fluid Routine Lab 06/25/24 17:18 Ordered Prothrombin Time with INR Stat Lab 06/25/24 17:07 Completed Troponin I Stat Lab 06/25/24 17:07 Completed Morphine Inj Med 06/25/24 18:12 Discontinued 5 mg IM X1 ONE Morphine Inj Med 06/25/24 17:18 Discontinued 5 mg IVP X1 ONE Ondansetron Inj [Zofran Inj] Med 06/25/24 18:12 Discontinued 4 mg IM X1 ONE Ondansetron Inj [Zofran Inj] Med 06/25/24 17:18 Discontinued 4 mg IV X1 ONE Vital Signs Vital signs: Vital Signs Temperature 98.2 F 06/25/24 16:22 Pulse Rate 88 06/25/24 16:22 Respiratory Rate 16 06/25/24 16:22 Blood Pressure 111/75 06/25/24 16:22 Pulse Oximetry (%) 94 L 06/25/24 16:22 Oxygen Delivery Method Room Air 06/25/24 16:22 Pulse ox is 94% on room air which is adequate. Abdominal Pain MDM MDM Narrative MDM Narrative:: IAnn am scribing for and in the presence of Dr. Emery. Patient data External records reviewed:: [facility] previous records (I reviewed admission from 06/19/2024 through 06/20/2024), EMS form and Shelter records Clinical information provided by:: patient and EMS Social determinants that could affect healthcare access:: housing (SNF resident ) Patient has the following chronic illnesses:: hepatitis C, treated with Harvoni, liver cirrhosis How is presenting disease/condition affected by chronic disease/condition?: exacerbated by Evaluation data The following diagnostics were reviewed and interpreted by me:: lab results and EKG tracing(s) (Sinus rhythm, rate 83, no acute ischemic changes ) Lab and/or radiology exams considered but not ordered:: None Interpretation Summary: As noted above Medications / Prescriptions Medications or Prescriptions considered but not ordered:: None Medication administrations:: Medication Administration History Discontinued Medications Morphine Sulfate (Morphine Sulf Inj 10 Mg/Ml Vial) 5 mg IVP X1 ONE Stop: 06/25/24 17:19 Morphine Sulfate (Morphine Sulf Inj 10 Mg/Ml Vial) 5 mg IM X1 ONE Stop: 06/25/24 18:13 Ondansetron HCl (Ondansetron Inj 2 Mg/Ml Inj 2 Ml) 4 mg IV X1 ONE Stop: 06/25/24 17:19 Ondansetron HCl (Ondansetron Inj 2 Mg/Ml Inj 2 Ml) 4 mg IM X1 ONE; Protocol Stop: 06/25/24 18:13 See above Consultations Consultation(s) initiated? (list below): No Diagnosis Differential diagnosis abdominal pain: abdominal pain, constipation and other (Ascites ) Most likely diagnosis given after review of the tests above:: Abdominal pain Abdominal ascites Admission Indicated Admission indicated?: not indicated Admission Request Was there a request for admission?: Yes Admission Attestation Admission request attestation: Discussed case with [] from Hospitalist service regarding admission. Discussed patients ED course, exam findings, labs, and radiology results. The Hospitalist [agrees,declines] to accept the patient for admission. Disposition Plan Disposition Plan: Discharge Discharge Attestation Discharge Attestation: The patient and all family members were given an opportunity to ask questions and understood the discharge instructions. Discharge instructions specifically effects, indications for sooner follow up or return to the emergency department, and the expected course of current diagnosis. Patient condition: Stable Discharge Plan Plan Patient Disposition: HOME (Self Care) Prescriptions/Referrals Prescriptions/Med Rec: No Action lactulose 10 gram/15 mL solution 20 g PO BID lorazepam 2 mg/mL concentrate 0.25 mg PO Q4H PRN (Reason: anxiety) midodrine 10 mg tablet 10 mg PO BID Patient Comments: hold sbp >130 Rx Instructions: do not give last dose of day after 6PM or within 4 hrs of bedtime furosemide [Lasix] 40 mg tablet 40 mg PO QAM magnesium oxide 400 mg magnesium capsule 400 mg PO QDAY spironolactone [Aldactone] 50 mg tablet 50 mg PO QDAY rosuvastatin [Crestor] 5 mg tablet 5 mg PO QDAY escitalopram oxalate 20 mg tablet 20 mg PO QDAY morphine concentrate 20 mg/mL syringe 20 mg PO .COMPLEX PRN (Reason: pain (scale score 7-10)) Rx Instructions: 20 mg orally every 2 hours prn pain PRN; morphine 15 mg tablet extended release 15 mg PO Q12H Referrals: No Primary/Family,Physician [Primary Care Provider] - In 1 week Problem List Clinical Impression: Abdominal pain, Abdominal ascites Patient/Caregiver Discharge Instructions Education Materials: ED Ascites Print Language: Malian Stand Alone Forms: Anne Marie Award Info., Patient Portal Info Letter
[2024-06-25 18:27] VITALS: BP 127/74; PULSE 79; RESP 19; TEMP 36.8; O2SAT 96
[2024-06-25] MEDS: MORPHINE SULF INJ 10 MG/ML VIAL 5 MG IM (18:35)
[2024-06-25] MEDS: ONDANSETRON INJ 2 MG/ML INJ 2 ML 4 MG IM (18:35)
[2024-06-25 20:00] VITALS: BP 118/67; PULSE 78; RESP 19; TEMP 36.7; O2SAT 98
== END 2024-06-25 21:03 | disposition home or self-care (01) ==
PROVIDERS: Emergency Provider Emergency Medicine
DX: K74.60 Unspecified cirrhosis of liver (principal); R18.8 Other ascites; K59.00 Constipation, unspecified
CPT/HCPCS: 36415; 80053; 82042; 82150; 82945; 83615; 83690; 83735; 83880; 84157; 84484; 85025; 85610; 85730; 89051; 93005; 96372; 99284; J2270; J2405

== ENCOUNTER 2024-06-28 10:13 | Emergency (ER) | payer OTHER, SELFPAY ==
[2024-06-28 10:14] VITALS: PULSE 92; O2SAT 93
[2024-06-28 10:31] VITALS: BP 116/78; PULSE 88; TEMP 36.9; O2SAT 98
--- NOTE | 2024-06-28 10:51 | XR_ITS ---
Examination: Ultrasound-guided paracentesis Abdominal sonogram limited Date and time of exam: June 28, 2024 1224 hours INDICATIONS: Cirrhosis, increasing ascites and abdominal distention this week Informed consent provided. A timeout was completed verifying correct patient, procedure, site, positioning, and special adequate movement if applicable. Technique: Multiple sonographic images of the abdomen have been obtained. Appropriate area for paracentesis was marked. Local anesthesia is obtained with 1% lidocaine. Yueh catheter is successfully introduced. Findings: Abdominal sonographic images demonstrate sufficient ascitic fluid for paracentesis. After placing the Yueh catheter, 8600 cc of fluid were successfully removed. During and after completion of the procedure the patient appear in satisfactory and stable condition with no complications observed. Estimated blood loss 0 cc Impression: Abdominal ascites Successful ultrasound-guided paracentesis as described above
--- NOTE | 2024-06-28 10:51 | PD.EDRME ---
Rapid Medical Screening Exam [facility] Arrival date/time: 06/28/24 10:13 68-year-old male with a history of cirrhosis presents to the emergency room with a chief complaint of abdominal distention and shortness of breath x 3 weeks. Patient states his distention has progressively gotten worse. Patient states he has cirrhosis but has not got tapped in years. I have greeted and performed a focused initial assessment of this patient. A comprehensive ED assessment and evaluation of the patient, analysis of all test results, and completion of the medical decision making process will be conducted by additional ED providers. Chief Complaint: Abdominal Pain Vital signs: Vital Signs Temperature 98.4 F 06/28/24 10:31 Pulse Rate 88 06/28/24 10:31 Blood Pressure 116/78 06/28/24 10:31 Pulse Oximetry (%) 98 06/28/24 10:31 Oxygen Delivery Method Room Air 06/28/24 10:31 Vital signs reviewed by provider: Yes
[2024-06-28 11:13] LABS: Basophils % (Auto) 0 % (0-2.5); Eosinophils % (Auto) 0 % (0-10); Hematocrit 36.7 % (41.0-53.0); Hemoglobin 12.6 g/dL (13.5-16.0); Immature Granulocytes % (Auto) 0 % (0-0); Immature Granulocytes Auto 0.02 Thou/mm3 (0.00-0.00); Lymphocytes # (Auto) 0.4 Thou/mm3 (1.0-4.8); Lymphocytes % (Auto) 4 % (10-50); Mean Corpuscular HGB Conc 34.3 g/dl (31.0-37.0); Mean Corpuscular Hemoglobin 32.4 pg (25.0-35.0); Mean Corpuscular Volume 94 fL (80-100); Monocytes % (Auto) 10 % (0-12); Neutrophils # (Auto) 8.7 Thou/mm3 (1.8-7.7); Neutrophils % (Auto) 85 % (37-80); Nucleated Red Blood Cell % 0 /100 WBC (0); RDW Standard Deviation 49.8 fL (35.1-43.9); Red Blood Count 3.89 Miln/mm3 (4.50-5.90); White Blood Count 10.2 Thou/mm3 (3.8-10.6)
[2024-06-28 11:26] LABS: Alanine Aminotransferase 91 U/L (10-49); Albumin, Serum 3.5 gm/dL (3.4-4.8); Albumin/Globulin Ratio 0.9 (1.2-2.2); Alkaline Phosphatase 307 U/L (46-116); Anion Gap 3 (7-16); Aspartate Amino Transferase 149 U/L (0-34); BUN/Creatinine Ratio 22 Ratio (12-20); Bilirubin,Total 4.1 mg/dL (0.3-1.2); Blood Urea Nitrogen 28 mg/dL (9-23); Calcium 9.4 mg/dL (8.3-10.6); Calcium (Corrected) 9.8 mg/dL (8.5-10.1); Carbon Dioxide 31.6 mMol/L (20.0-31.0); Chloride 97 mMol/L (98-107); Creatinine (Component) 1.3 mg/dL (0.6-1.3); Globulin 3.7 gm/dL (2.3-3.5); Glucose 140 mg/dL (74-106); Osmolality,Calculated 272 (275-295); Potassium 5.4 mMol/L (3.4-5.1); Sodium 132 mMol/L (136-145); Total Protein 7.2 gm/dL (5.7-8.2); eGFR 60 See Note
[2024-06-28 11:33] LABS: INR 1.4 (0.9-1.3); Partial Thromboplastin Time 29.6 Seconds (22.0-36.0)
--- NOTE | 2024-06-28 11:57 | PC.NURSE ---
CALL RECEIVED FROM NURSE AT [facility] AT [facility] FOR UPDATE AND INFORMED THAT MD WAITING ON LABS AND U/S
[2024-06-28 12:04] LABS: Platelet Count 60 Thou/mm3 (140-440)
[2024-06-28 14:14] LABS: Slide Review Platelets confirmed
--- NOTE | 2024-06-28 14:37 | PD.EDADULT ---
ED General RME/HPI General Chief complaint: Abdominal Pain Stated complaint: ABD PAIN D/T SEVERE ASCITES Time Seen by Provider: 06/28/24 14:34 Arrival date/time: 06/28/24 10:13 CC: Abdominal distention with shortness of breath HPI ongoing for 3 weeks. The patient has ascites. But has not had paracentesis in a number of years. Patient is awake alert oriented nontoxic-appearing not in any acute distress denies any chest pain. RME / HPI RME / HPI narrative: 06/28/24 10:13 68-year-old male with a history of cirrhosis presents to the emergency room with a chief complaint of abdominal distention and shortness of breath x 3 weeks. Patient states his distention has progressively gotten worse. Patient states he has cirrhosis but has not got tapped in years. I have greeted and performed a focused initial assessment of this patient. A comprehensive ED assessment and evaluation of the patient, analysis of all test results, and completion of the medical decision making process will be conducted by additional ED providers. Related Data Home Medications ?Medication ?Instructions ?Recorded ?Confirmed escitalopram oxalate 20 mg tablet 20 mg PO QDAY 06/19/24 06/19/24 furosemide 40 mg tablet (Lasix) 40 mg PO QAM 06/19/24 06/19/24 lactulose 10 gram/15 mL oral 20 g PO BID 06/19/24 06/19/24 solution lorazepam 2 mg/mL oral concentrate 0.25 mg PO Q4H PRN anxiety 06/19/24 06/19/24 magnesium oxide 400 mg PO QDAY 06/19/24 06/19/24 midodrine 10 mg tablet 10 mg PO BID 06/19/24 06/19/24 morphine 15 mg tablet,extended 15 mg PO Q12H 06/19/24 06/19/24 release morphine concentrate 20 mg/mL oral 20 mg PO .COMPLEX PRN pain (scale 06/19/24 06/19/24 syringe (FOR ORAL USE ONLY) score 7-10) rosuvastatin 5 mg tablet (Crestor) 5 mg PO QDAY 06/19/24 06/19/24 spironolactone 50 mg tablet 50 mg PO QDAY 06/19/24 06/19/24 (Aldactone) Allergies Allergy/AdvReac Type Severity Reaction Status Date / Time No Known Allergies Allergy Verified 06/28/24 10:18 Review of Systems Review of Systems Narrative Review of Systems: GEN: No fever, no chills, no weight loss EYES: No discharge, no visual changes, no pain HEENT: No ear pain, no congestion, no sore throat PULM: + shortness of breath, no cough, no congestion CV: No chest pain, no dyspnea on exertion, no palpitations GI: No nausea, no vomiting, no diarrhea, + pain, no constipation : No frequency, no urgency, no dysuria MUSC/SKEL: No joint pain, no back pain SKIN: No rash PSYCH: No hallucinations, no depression HEME/LYMPH: No easy bleeding or bruising tendencies NEURO: No weakness, no headache Past Medical History Past Medical History NEUROLOGIC: Negative Seizures CARDIAC: Positive Hypertension; Negative Cardiac Disorders, Hypercholesterolemia or Congestive Heart Failure RESPIRATORY: Negative Chronic Obstructive Pulmonary Disease (COPD) or Asthma GASTROINTESTINAL: Positive Cirrhosis; Negative Hepatitis GENITOURINARY: Negative Renal Disease MUSCULOSKELETAL: Positive Arthritis ENDOCRINE: Positive Diabetes Mellitus Type 1; Negative Diabetes Mellitus Type 2 HEMATOLOGIC: Negative Sickle Cell Disease PSYCHO/SOCIAL: Positive Recreational Drug Use OTHER HISTORY: Positive Falls, Chicken Pox and Cancer; Negative Anesthesia Reactions, Chemotherapy or Radiation Therapy Social History SMOKING STATUS: Current every day smoker ED Exam Narrative Physical exam: [General: In mild discomfort but not in any acute distress Head normocephalic HEENT: Within acceptable limits Neck is supple nontender Chest equal chest rise nontender to palpation Respiratory: Clear to auscultation no wheezes crackles or rubs CV: Rate rhythm is regular no murmurs rubs or clicks Abdomen is distended firm but not rigid, tympanic. Nontender. Back: No CVA tenderness no spinous process tenderness from cervical spine thoracic and lumbar spine Skin: Intact no petechiae rash induration ulceration or crepitus Extremities: Moving all extremity against resistance cap refill less than 2 seconds neurosensory intact Neuro: Awake alert oriented x3 Glascow coma 15 no focal deficits] Course Quality Measures none Orders Category Date Time Status US paracentesis abd w/image Stat Exams 06/28/24 10:51 Completed CBC Stat Lab 06/28/24 10:58 Completed CMP [Comprehensive Metabolic Panel] Stat Lab 06/28/24 10:58 Completed PT [Prothrombin Time with INR] Stat Lab 06/28/24 10:58 Completed PTT [Partial Thromboplastin Time] Stat Lab 06/28/24 10:58 Completed Albumin Human 25% Ivpb [Albuminar-25 Ivpb] Med 06/28/24 14:38 Discontinued 12.5 gm in 50 ml IV X1 Calcium Gluconate 10% Inj Med 06/28/24 14:48 Discontinued 1 gm IV X1 ONE Lidocaine 1% Pf 30 ml [Xylocaine 1% Pf 30 ml] Med 06/28/24 12:09 Discontinued 30 ml .ROUTE .STK-MED ONE oxyCODONE/APAP 5/325 [Percocet 5/325] Med 06/28/24 15:11 Discontinued 1 tab PO X1 ONE Vital Signs Vital signs: Vital Signs Temperature 98.4 F 06/28/24 10:31 Pulse Rate 88 06/28/24 10:31 Blood Pressure 116/78 06/28/24 10:31 Pulse Oximetry (%) 98 06/28/24 10:31 Oxygen Delivery Method Room Air 06/28/24 10:31 [facility] Patient data External records reviewed:: [facility] previous records Clinical information provided by:: patient Social determinants that could affect healthcare access:: none Patient has the following chronic illnesses:: Cirrhosis history of ascites How is presenting disease/condition affected by chronic disease/condition?: exacerbated by Evaluation data The following diagnostics were reviewed and interpreted by me:: lab results, radiology exam(s) and EKG tracing(s) Lab and/or radiology exams considered but not ordered:: CBC shows no leukocytosis H&H of 12.6 and 37.7 respectively platelet count at 60. PT 15.0 INR 1.4 PTT 29.6 CMP shows a sodium 132 potassium of 5.4 chloride of 97 carbon oxide 31.6 gap of 3 BUN of 28 creatinine 1.3. Glucose of 140 T. bili of 4.1 transaminitis. Paracentesis ultrasound shows 8600 mL of fluid removed. Patient states abdominal pain is gone and breathing is now normal . Interpretation Summary: Ascites. Transaminitis probably secondary to cirrhosis. Medications Medications considered but not ordered:: None Medication administrations:: Medication Administration History Discontinued Medications Calcium Gluconate (Calcium Gluconate 10% Inj 1 Gm/10 Ml Vial) 1 gm IV X1 ONE Stop: 06/28/24 14:49 Last Admin: 06/28/24 16:11 Dose: 1 gm Documented By: GM Albumin Human (Albuminar-25 Ivpb) 12.5 gm in 50 mls @ 50 mls/hr IV X1 ONE Stop: 06/28/24 15:37 Last Admin: 06/28/24 16:12 Dose: 50 mls/hr Documented By: GM Lidocaine HCl (Lidocaine Inj Pf 1% 30 Ml Vial) Confirm Administered Dose 30 ml .ROUTE .STK-MED ONE Stop: 06/28/24 12:10 Last Admin: 06/28/24 12:38 Dose: Not Given Documented By: KAYLEE Non-Admin Reason: Cancelled by Provider Oxycodone/Acetaminophen (Oxycodone/Apap 5/325 Tablet) 1 tab PO X1 ONE Stop: 06/28/24 15:12 Last Admin: 06/28/24 15:44 Dose: 1 tab Documented By: GUANACO None Consultations Consultation(s) initiated? (list below): No Diagnosis Differential Diagnosis ED Complaint MDM: Cirrhosis ascites Most likely diagnosis given after review of the tests above:: Abdominal ascites Admission Indicated Admission indicated?: not indicated Explain why admission is indicated or not indicated:: Stable for outpatient follow-up Admission Request Was there a request for admission?: No Disposition Plan Disposition Plan: Discharge Discharge Attestation Discharge Attestation: The patient and all family members were given an opportunity to ask questions and understood the discharge instructions. Discharge instructions specifically effects, indications for sooner follow up or return to the emergency department, and the expected course of current diagnosis. Patient condition: Stable Medical Decision Making Differential Diagnosis Differential Diagnosis: Cirrhosis ascites Lab Data 06/28/24 10:58 06/28/24 10:58 Labs: Lab Results 06/28/24 Range/Units 10:58 WBC 10.2 (3.8-10.6) Thou/mm3 RBC 3.89 L (4.50-5.90) Miln/mm3 Hgb 12.6 L (13.5-16.0) g/dL Hct 36.7 L (41.0-53.0) % MCV 94 (80-100) fL MCH 32.4 (25.0-35.0) pg MCHC 34.3 (31.0-37.0) g/dl RDW Std Deviation 49.8 H (35.1-43.9) fL Plt Count 60 L (140-440) Thou/mm3 Neut % (Auto) 85 H (37-80) % Lymph % (Auto) 4 L (10-50) % [place] % (Auto) 10 (0-12) % Eos % (Auto) 0 (0-10) % Baso % (Auto) 0 (0-2.5) % Neut # (Auto) 8.7 H (1.8-7.7) Thou/mm3 Lymph # (Auto) 0.4 L (1.0-4.8) Thou/mm3 [place] # (Auto) 1.0 H (0.0-0.8) Thou/mm3 Eos # (Auto) 0.0 (0.0-0.5) Thou/mm3 Baso # (Auto) 0.0 (0.0-0.2) Thou/mm3 Immature Gran # (Auto) 0.02 H (0.00-0.00) Thou/mm3 Absolute Nucleated RBC 0.00 (0.00-0.00) Thou/mm3 Immature Gran % 0 (0-0) % Nucleated RBC % 0 (0) /100 WBC PT 15.0 H (9.0-12.2) Seconds INR 1.4 H (0.9-1.3) APTT 29.6 (22.0-36.0) Seconds Sodium 132 L (136-145) mMol/L Potassium 5.4 H D (3.4-5.1) mMol/L Chloride 97 L (98-107) mMol/L Carbon Dioxide 31.6 H (20.0-31.0) mMol/L Anion Gap 3 L (7-16) BUN 28 H (9-23) mg/dL Creatinine 1.3 (0.6-1.3) mg/dL Estim Creat Clear Calc Not Performed. eGFR 60 (60 - ) See Note BUN/Creatinine Ratio 22 H (12-20) Ratio Glucose 140 H (74-106) mg/dL Calculated Osmolality 272 L (275-295) Calcium 9.4 (8.3-10.6) mg/dL Corrected Calcium 9.8 (8.5-10.1) mg/dL Total Bilirubin 4.1 H D (0.3-1.2) mg/dL AST 149 H (0-34) U/L ALT 91 H (10-49) U/L Alkaline Phosphatase 307 H D (46-116) U/L Total Protein 7.2 (5.7-8.2) gm/dL Albumin 3.5 (3.4-4.8) gm/dL Globulin 3.7 H (2.3-3.5) gm/dL Albumin/Globulin Ratio 0.9 L (1.2-2.2) Misc Test Result Platelets confirmed Discharge Plan Plan Patient Disposition: HOME (Self Care) Patient condition on transfer: Stable Prescriptions/Referrals Prescriptions/Med Rec: No Action lactulose 10 gram/15 mL solution 20 g PO BID lorazepam 2 mg/mL concentrate 0.25 mg PO Q4H PRN (Reason: anxiety) midodrine 10 mg tablet 10 mg PO BID Patient Comments: hold sbp >130 Rx Instructions: do not give last dose of day after 6PM or within 4 hrs of bedtime furosemide [Lasix] 40 mg tablet 40 mg PO QAM magnesium oxide 400 mg magnesium capsule 400 mg PO QDAY spironolactone [Aldactone] 50 mg tablet 50 mg PO QDAY rosuvastatin [Crestor] 5 mg tablet 5 mg PO QDAY escitalopram oxalate 20 mg tablet 20 mg PO QDAY morphine concentrate 20 mg/mL syringe 20 mg PO .COMPLEX PRN (Reason: pain (scale score 7-10)) Rx Instructions: 20 mg orally every 2 hours prn pain PRN; morphine 15 mg tablet extended release 15 mg PO Q12H Referrals: [facility])Claire MD [Primary Care Provider] - In 1 week Problem List Clinical Impression: Ascites, Hyperkalemia Patient/Caregiver Discharge Instructions Education Materials: Paracentesis, Hyperkalemia Dc Print Language: [place] Stand Alone Forms: Anne Marie Award Info., Patient Portal Info Letter
[2024-06-28 15:02] VITALS: BP 128/79; PULSE 99; RESP 18; TEMP 36.6
[2024-06-28] MEDS: oxyCODONE/APAP 5/325 TABLET 1 TAB PO (15:44)
[2024-06-28] MEDS: CALCIUM GLUCONATE 10% INJ 1 GM/10 ML VIAL IV (16:11)
[2024-06-28] MEDS: ALBUMIN HUMAN 25% IVPB 12.5 GM/50 ML BTL IV (16:12)
[2024-06-28 17:02] VITALS: BP 118/75; PULSE 67; RESP 18; TEMP 36.4; O2SAT 95
--- NOTE | 2024-06-28 17:32 | PC.SS ---
Per [facility], they will call back if able to transport patient back. [facility] not available for transportation this evening. Patient does not possess [facility] transportation services.
--- NOTE | 2024-06-28 17:38 | PC.NURSE ---
pts residential/hospice facility called. States they are working with their DON to arrange transport for pt back to the facility most likely via non emergent van. Will return a call once transport in place.
== END 2024-06-28 18:40 | disposition home or self-care (01) ==
PROVIDERS: Nurse Practitioner Family; Emergency Provider Emergency Medicine; PCP Hospitalist
DX: K74.60 Unspecified cirrhosis of liver (principal); R18.8 Other ascites; E87.5 Hyperkalemia
CPT/HCPCS: 49083; 36415; 80053; 85025; 85610; 85730; 99284; C1729; J0612; P9047; A9270